=== PATIENT | male | born 1965 | race Caucasian/White ===

== ENCOUNTER 2016-04-05 17:21 | Emergency (ER) | payer OTHER, BC ==
[~2016-04-05] VITALS: Ht 180.3 cm; Wt 94.8 kg
[2016-04-05 18:11] VITALS: BP_SYST 156; BP_SYST 16; BP_DIAS 88; PULSE 66; RESP 16; TEMP 98; O2SAT 98
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
[2016-04-05] MEDS ORDERED: IBUP800T23 PO (19:56)
[2016-04-05] MEDS ORDERED: CYCL1TAB29 PO (19:56)
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
== END 2016-04-05 20:06 | disposition home or self-care (01) ==
LOC: PHEFT 17:21
DX: R07.89 Other chest pain (principal); V49.59XA Passenger injured in collision with other motor vehicles in traffic accident, initial encounter
CPT/HCPCS: 71020; 99284

== ENCOUNTER 2016-12-25 09:00 | Inpatient (IN) | payer BC ==
[2016-12-25] VITALS (8 sets, daily range): BP systolic 120–141; BP diastolic 61–98; PULSE 99–113; RESP 16–20; TEMP 97.4–99.5; O2SAT 95–100
[~2016-12-25] VITALS: Ht 180.3 cm; Wt 93.2 kg
[~2016-12-25 09:00] MED LIST: CYCL10TA PO; IBUP1TAB7 PO
[2016-12-25] MEDS ORDERED: SODIUM CHLOR 0.9% 1000 ML INJ 1,000 ML IV SCH ×2 (09:22)
[2016-12-25] MEDS ORDERED: ONDANSETRON HCL 4 MG/2 ML VIAL IVP ONE (09:30)
[2016-12-25] MEDS ORDERED: HYDROmorphone HCL PF 2 MG/ML VIAL IVS ONE (09:30)
[2016-12-25] MEDS ORDERED: SODIUM CHLORIDE 0.9% FLUSH 10 ML FLUSH IV FLUSH PRN ×2 (09:30→11:30)
--- NOTE | 2016-12-25 09:31 | PD ---
HPI Chief Complaint: Abdominal Pain Time Seen by Provider: 09:15 Travel History International Travel<30 days: No Contact w/Intl Traveler<30days: No Traveled to known affect area: No History of Present Illness HPI This 51-year-old male complaining of abdominal pain and vomiting. He has no history of abdominal surgery. Last night he was complaining of some lower back pain. The pain seemed to move to the front around 2:00 this morning he had a small bowel movement and then had a large amount of vomiting. He believes he was having upper abdominal pain prior to the onset of the vomiting. He again vomited at 4 and has continued to have abdominal pain. He had eaten dinner last night without any problems. He does feel like his abdomen is distended. He has no history of hernia. He had a small bowel movement this morning around 2 this loose stool. He says the pain was initially intermittent becoming every 60 seconds or so. It is now fairly constant and is quite severe. He recently had a routine colonoscopy which was normal. [facility] Past Medical History Medical History: Denies Significant Hx Diminished Hearing: No Immunizations Current: Yes Influenza Vaccination: Yes Past Surgical History Surgical History: No Previous Surgery Social History Alcohol Use: No Tobacco Use: No Substance Use: No Allergies-Medications (Allergen,Severity, Reaction): Coded Allergies: No Known Allergies (Unverified Adverse Reaction, Unknown, 12/25/16) Reported Meds & Prescriptions Reported Meds & Active Scripts Active No Active Prescriptions or Reported Medications Review of Systems General / Constitutional: No: Fever, Chills Eyes: No: Diploplia, Blurred Vision HENT: No: Headaches, Vertigo Cardiovascular: No: Chest Pain or Discomfort, Palpitations Respiratory: No: Cough, Shortness of Breath Gastrointestinal: Positive: Nausea, Vomiting, Abdominal Pain Genitourinary: No: Urgency, Frequency Physical Exam Narrative GENERAL: Well-developed male. He did vomit a large amount on arrival SKIN: Focused skin assessment warm/dry. HEAD: Atraumatic. Normocephalic. EYES: Pupils equal and round. No scleral icterus. No injection or drainage. ENT: No nasal bleeding or discharge. Mucous membranes pink and moist. NECK: Trachea midline. No JVD. CARDIOVASCULAR: Regular rate and rhythm. No murmur appreciated. RESPIRATORY: No accessory muscle use. Clear to auscultation. Breath sounds equal bilaterally. GASTROINTESTINAL: Abdomen is distended. There is upper abdominal tenderness. Bowel sounds are diminished MUSCULOSKELETAL: No obvious deformities. No clubbing. No cyanosis. No edema. NEUROLOGICAL: Awake and alert. No obvious cranial nerve deficits. Motor grossly within normal limits. Normal speech. PSYCHIATRIC: Appropriate mood and affect; insight and judgment normal. Data Data Last Documented VS Vital Signs Date Time Temp Pulse Resp B/P (MAP) Pulse Ox O2 Delivery O2 Flow Rate FiO2 12/25/16 09:41 95 Room Air 12/25/16 09:04 97.4 113 20 141/98 (112) Orders Orders Complete Blood Count With Diff (12/25/16:22) Comprehensive Metabolic Panel (12/25/16:) Lipase (12/25/16:) Urinalysis - C+S If Indicated (12/25/16:22) Ct Abd/Pel W Iv Contrast(Rout) (12/25/16:22) Iv Access Insert/Monitor (12/25/16:) Ecg Monitoring (12/25/16:) Oximetry (12/25/16:22) Hydromorphone Pf Inj (Dilaudid Pf Inj) (12/25/16 09:30) Ondansetron Inj (Zofran Inj) (12/25/16 09:30) Sodium Chlor 0.9% 1000 Ml Inj (Ns 1000 M (12/25/16 09:22) Sodium Chlor 0.9% 1000 Ml Inj (Ns 1000 M (12/25/16 09:22) Sodium Chloride 0.9% Flush (Ns Flush) (12/25/16 09:30) Labs Laboratory Tests Test 12/25/16 09:39 White Blood Count 19.1 TH/MM3 Red Blood Count 6.97 MIL/MM3 Hemoglobin 13.4 GM/DL Hematocrit 44.3 % Mean Corpuscular Volume 63.6 FL Mean Corpuscular Hemoglobin 19.3 PG Mean Corpuscular Hemoglobin Concent 30.3 % Red Cell Distribution Width 19.1 % Platelet Count 337 TH/MM3 Mean Platelet Volume 8.6 FL Neutrophils (%) (Auto) 93.3 % Lymphocytes (%) (Auto) 2.2 % Monocytes (%) (Auto) 3.0 % Eosinophils (%) (Auto) 0.3 % Basophils (%) (Auto) 1.2 % Neutrophils # (Auto) 17.8 TH/MM3 Lymphocytes # (Auto) 0.4 TH/MM3 Monocytes # (Auto) 0.6 TH/MM3 Eosinophils # (Auto) 0.1 TH/MM3 Basophils # (Auto) 0.2 TH/MM3 CBC Comment AUTO DIFF Blood Urea Nitrogen 23 MG/DL Creatinine 1.30 MG/DL Random Glucose 202 MG/DL Total Protein 8.5 GM/DL Albumin 4.3 GM/DL Calcium Level 9.2 MG/DL Alkaline Phosphatase 84 U/L Aspartate Amino Transf (AST/SGOT) 19 U/L Alanine Aminotransferase (ALT/SGPT) 33 U/L Total Bilirubin 0.6 MG/DL Sodium Level 135 MEQ/L Potassium Level 3.6 MEQ/L Chloride Level 96 MEQ/L Carbon Dioxide Level 24.0 MEQ/L Anion Gap 15 MEQ/L Estimat Glomerular Filtration Rate 58 ML/MIN Lipase 99 U/L [facility] Medical Decision Making Medical Screen Exam Complete: Yes Emergency Medical Condition: Yes Medical Record Reviewed: Yes Differential Diagnosis Differential includes acute gastritis, pancreatitis, small bowel obstruction Narrative Course Patient is given IV fluids, Zofran and Dilaudid. He does report improvement in his pain with Dilaudid. White count is elevated at 19,000 Scripts No Active Prescriptions or Reported Meds Bay Yu MD Dec 25, 2016 09:31
[2016-12-25 09:44] LABS: AUTOMATED NEUTROPHIL # 17.8 TH/MM3 (1.8-7.7); BASOPHIL # 0.2 TH/MM3 (0-0.2); BASOPHIL % 1.2 % (0.0-2.0); EOSINOPHIL # 0.1 TH/MM3 (0-0.4); EOSINOPHIL % 0.3 % (0.0-4.0); HEMATOCRIT 44.3 % (39.0-51.0); LYMPH % 2.2 % (9.0-44.0); LYMPHOCYTE # 0.4 TH/MM3 (1.0-4.8); MEAN CELL VOLUME 63.6 FL (80.0-100.0); MEAN CORPUSCULAR HEMOGLOBIN 19.3 PG (27.0-34.0); MEAN CORPUSCULAR HGB CONC 30.3 % (32.0-36.0); NEUT % 93.3 % (16.0-70.0); PLATELET COUNT 337 TH/MM3 (150-450); RED BLOOD COUNT 6.97 MIL/MM3 (4.50-5.90); RED CELL DISTRIBUTION WIDTH 19.1 % (11.6-17.2); WHITE BLOOD COUNT 19.1 TH/MM3 (4.0-11.0)
[2016-12-25 09:49] LABS: HEMO FLAGS AUTO DIFF
[2016-12-25 09:55] LABS: CHLORIDE 96 MEQ/L (98-107); POTASSIUM 3.6 MEQ/L (3.5-5.1); SODIUM (NA) 135 MEQ/L (136-145)
[2016-12-25 09:56] LABS: ANION GAP 15 MEQ/L (5-15)
[2016-12-25 09:59] LABS: ALT (GPT) 33 U/L (12-78); AST (GOT) 19 U/L (15-37); GLOMERULAR FILTRATION RATE 58 ML/MIN (>89)
[2016-12-25 10:00] LABS: BLOOD UREA NITROGEN 23 MG/DL (7-18)
[2016-12-25 10:01] LABS: TOTAL BILIRUBIN ADULT 0.6 MG/DL (0.2-1.0)
[2016-12-25 10:02] LABS: ALKALINE PHOSPHATASE 84 U/L (45-117)
[2016-12-25 10:08] LABS: SCAN/DIFF AUTO DIFF CONFIRMED
[2016-12-25] MEDS ORDERED: IOHEXOL 350 MG/ML 10 ML VIAL (for RAD DIAG) IVCONTRAST ONE (10:31)
--- NOTE | 2016-12-25 10:50 | RADRPT ---
EXAM DATE/TIME: 12/25/2016 10:24 [facility] COMPARISON: No previous studies available for comparison. INDICATIONS : Diffuse abdominal pain and cramping with vomiting and nausea. IV CONTRAST: 95 cc Omnipaque 350 (iohexol) IV ORAL CONTRAST: No oral contrast ingested. RADIATION DOSE: 15.72 CTDIvol (mGy) MEDICAL HISTORY : None SURGICAL HISTORY : None. ENCOUNTER: Initial ACUITY: 1 day PAIN SCALE: 5/10 LOCATION: abdomen TECHNIQUE: Volumetric scanning of the abdomen and pelvis was performed. Using automated exposure control and ad justment of the mA and/or kV according to patient size, radiation dose was kept as low as reasonably achievable to obtain optimal diagnostic quality images. DICOM format image data is available electro nically for review and comparison. FINDINGS: LOWER LUNGS: There is mild dependent atelectasis in the right lower lobe. Otherwise, lung bases are clear. LIVER: Homogeneous density without lesion. There is no dilation of the biliary tree. No calcified gallston es. SPLEEN: Mildly enlarged measuring 13.9 cm. PANCREAS: Within normal limits. KIDNEYS: There is a duplicated right renal collecting system. A 2 mm nonobstructing stone is present in the ri ght upper pole. There is no mass or hydronephrosis. ADRENAL GLANDS: Within normal limits. VASCULAR: There is no aortic aneurysm. There is mild atherosclerotic disease. BOWEL/MESENTERY: The distal esophagus is distended with fluid. A small hiatal hernia is present. There is a distended stomach. Duodenum and proximal jejunum are decompressed. Mid and distal jejunum are dilated measuring up to 3.5 cm. The transition point is in the distal and terminal ileum where there is mild wall thic kening and luminal narrowing involving a 10-15 cm segment. This abnormal portion of distal ileum demo nstrates mild mucosal hyperenhancement and submucosal fat. Immediately proximal to the abnormal segme nt there is a mildly distended and skip segment with an intervening short narrowed segment. Small bow el feces sign is present. There is a small volume of free fluid in the abdomen and pelvis. Colon is d ecompressed. ABDOMINAL WALL: Within normal limits. RETROPERITONEUM: There is no lymphadenopathy. BLADDER: No wall thickening or mass. REPRODUCTIVE: Within normal limits. INGUINAL: There is no lymphadenopathy or hernia. MUSCULOSKELETAL: No acute abnormality. CONCLUSION: 1. Abnormally dilated mid and distal small bowel likely representing a partial small bowel obstructio n secondary to an abnormal distal and terminal ileum. The abnormal ileum has an appearance highly satish picious for inflammatory bowel disease/Crohn's disease. 2. Trace free fluid in the abdomen and pelvis. 3. Mild splenomegaly. Augustin Murray MD on December 25, 2016 at 10:40 Board Certified Radiologist. This report was verified electronically.
[2016-12-25] MEDS ORDERED: PIPERACIL-TAZO 4.5 GM PREMIX 100 ML IV STA (11:01)
[2016-12-25] MEDS ORDERED: SODIUM CHLOR 0.9% 1000 ML INJ 1,000 ML IV ONE ×2 (11:15→12:15)
[2016-12-25] MEDS ORDERED: MAGNESIUM HYDROXIDE SUSP 30 ML CUP PO PRN (11:30)
[2016-12-25] MEDS ORDERED: LACTULOSE SYRUP 20 GM/30 ML CUP PO PRN (11:30)
[2016-12-25] MEDS ORDERED: NALOXONE HCL 0.4 MG/ML AMP IV PUSH PRN (11:30)
[2016-12-25] MEDS ORDERED: ACETAMINOPHEN 325 MG TAB PO PRN (11:30)
[2016-12-25] MEDS ORDERED: SENNOSIDES 8.6 MG TAB PO PRN (11:30)
[2016-12-25] MEDS ORDERED: MORPHINE SULFATE 4 MG/ML INJ IV PUSH PRN (11:30)
[2016-12-25] MEDS ORDERED: BISACODYL 10 MG SUPP RECTAL PRN (11:30)
[2016-12-25 11:46] LABS: BLOOD, URINE NEG (NEG); GLUCOSE,URINE NEG (NEG); KETONE, URINE 15 mg/dL (NEG); NITRITE,URINE NEG (NEG); PH, URINE 6.5 (5.0-8.5)
[2016-12-25 11:48] LABS: METHOD OF COLLECTION CLEAN CATCH; URINE COLOR YELLOW (YELLW/STRAW)
[2016-12-25 11:54] LABS: COMMENT (UR) CULT NOT INDICATED; COMMENT2 (UR) MUCOUS PRESENT; CULTURE IF INDICATED CULT NOT INDICATED; SQUAMOUS EPITHELIAL CELL URINE 0-5 /hpf (0-5); WBC, URINE 0-2 /hpf (0-5)
[2016-12-25 11:55] LABS: HYALINE CAST, URINE 0-2 /lpf (RARE); TRANSITIONAL EPI CELLS, URINE 0-5 /hpf
[2016-12-25] MEDS ORDERED: methylPREDNISolone SOD SUCC 125 MG/2 ML VIAL IV PUSH ONE (12:00)
[2016-12-25] MEDS: metroNIDAZOLE 500 MG INJ 100 ML IV SCH ×2 (12:25→20:29)
[2016-12-25] MEDS: SODIUM CHLOR 0.9% 1000 ML INJ 1,000 ML IV SCH ×2 (12:26→20:07)
--- NOTE | 2016-12-25 12:58 | PD ---
Physical Exam Narrative GENERAL: Well-nourished, well-developed patient. SKIN: Warm and dry. HEAD: Normocephalic and atraumatic. EYES: No injection or drainage. ENT: No nasal drainage noted. NECK: Supple, trachea midline. CARDIOVASCULAR: Regular rate and rhythm RESPIRATORY: no increased effort. No accessory muscle use. GASTROINTESTINAL: Abdomen soft, non-tender, mild distension NEUROLOGICAL: Awake and alert. Motor and sensory grossly within normal limits. Normal speech. Data Data Last Documented VS Vital Signs Date Time Temp Pulse Resp B/P (MAP) Pulse Ox O2 Delivery O2 Flow Rate FiO2 12/25/16 11:15 108 18 120/61 (80) 95 Room Air 12/25/16 09:04 97.4 Orders Orders Complete Blood Count With Diff (12/25/16 09:22) Comprehensive Metabolic Panel (12/25/16 09:22) Lipase (12/25/16 09:22) Urinalysis - C+S If Indicated (12/25/16 09:22) Ct Abd/Pel W Iv Contrast(Rout) (12/25/16 09:22) Iv Access Insert/Monitor (12/25/16 09:22) Ecg Monitoring (12/25/16 09:22) Oximetry (12/25/16 09:22) Hydromorphone Pf Inj (Dilaudid Pf Inj) (12/25/16 09:30) Ondansetron Inj (Zofran Inj) (12/25/16 09:30) Sodium Chlor 0.9% 1000 Ml Inj (Ns 1000 M (12/25/16 09:22) Sodium Chlor 0.9% 1000 Ml Inj (Ns 1000 M (12/25/16 09:22) Sodium Chloride 0.9% Flush (Ns Flush) (12/25/16 09:30) Iohexol 350 Inj (Omnipaque 350 Inj) (12/25/16 10:31) Lactic Acid Sepsis Protocol (12/25/16 11:01) Blood Culture (12/25/16 11:01) Piperacil-Tazo 4.5 Gm Premix (Zosyn 4.5 (12/25/16 11:01) Sodium Chlor 0.9% 1000 Ml Inj (Ns 1000 M (12/25/16 11:15) Consult General Surgery (12/25/16 ) Admit Order (Ed Use Only) (12/25/16 11:19) Labs Laboratory Tests Test 12/25/16 09:39 White Blood Count 19.1 TH/MM3 Red Blood Count 6.97 MIL/MM3 Hemoglobin 13.4 GM/DL Hematocrit 44.3 % Mean Corpuscular Volume 63.6 FL Mean Corpuscular Hemoglobin 19.3 PG Mean Corpuscular Hemoglobin Concent 30.3 % Red Cell Distribution Width 19.1 % Platelet Count 337 TH/MM3 Mean Platelet Volume 8.6 FL Neutrophils (%) (Auto) 93.3 % Lymphocytes (%) (Auto) 2.2 % Monocytes (%) (Auto) 3.0 % Eosinophils (%) (Auto) 0.3 % Basophils (%) (Auto) 1.2 % Neutrophils # (Auto) 17.8 TH/MM3 Lymphocytes # (Auto) 0.4 TH/MM3 Monocytes # (Auto) 0.6 TH/MM3 Eosinophils # (Auto) 0.1 TH/MM3 Basophils # (Auto) 0.2 TH/MM3 CBC Comment AUTO DIFF Differential Comment AUTO DIFF CONFIRMED Blood Urea Nitrogen 23 MG/DL Creatinine 1.30 MG/DL Random Glucose 202 MG/DL Total Protein 8.5 GM/DL Albumin 4.3 GM/DL Calcium Level 9.2 MG/DL Alkaline Phosphatase 84 U/L Aspartate Amino Transf (AST/SGOT) 19 U/L Alanine Aminotransferase (ALT/SGPT) 33 U/L Total Bilirubin 0.6 MG/DL Sodium Level 135 MEQ/L Potassium Level 3.6 MEQ/L Chloride Level 96 MEQ/L Carbon Dioxide Level 24.0 MEQ/L Anion Gap 15 MEQ/L Estimat Glomerular Filtration Rate 58 ML/MIN Lipase 99 U/L [facility] Supervised Visit with KHUSHBOO: No Interpretation(s) CBC & BMP Diagram 12/25/16 09:39 Total Protein 8.5 H, Albumin 4.3, Calcium Level 9.2, Alkaline Phosphatase 84, Aspartate Amino Transf (AST/SGOT) 19, Alanine Aminotransferase (ALT/SGPT) 33, Total Bilirubin 0.6 Last 24 hours Impressions Abdomen/Pelvis CT 12/25/16921 Signed Impressions: Service Date/Time: Sunday, December 25, 2016 10:24 - CONCLUSION: 1. Abnormally dilated mid and distal small bowel likely representing a partial small bowel obstruction secondary to an abnormal distal and terminal ileum. The abnormal ileum has an appearance highly suspicious for inflammatory bowel disease/Crohn's disease. 2. Trace free fluid in the abdomen and pelvis. 3. Mild splenomegaly. Augustin Murray MD Narrative Course Took over case as prior physician had a family emergency, given leukocytosis and tachycardia with findings on CT will add on lactate and dose with Zosyn and give IV fluids. We'll discuss case with general surgeon. Patient has no abdominal pain and has had no further emesis after medication here. He was updated and agrees to admission Sepsis Criteria SIRS Criteria (2 or more): Heart rate over 90, WBC > 08350, < 4000 or > 10% bands Sepsis Criteria (SIRS+source): Infect source susp/known Physician Communication Physician Communication dr avelar thru OR team states to admit to medicine and will be consult dr cage agrees to admit Diagnosis Primary Impression: Partial small bowel obstruction Additional Impression: Sepsis Qualified Codes: A41.9 - Sepsis, unspecified organism Admitting Information Admitting Physician Requests: Admit Scripts No Active Prescriptions or Reported Meds Chary Stokes MD Dec 25, 2016 12:58
[2016-12-25 13:41] LABS: LACTIC ACID GHOST NOT REPORTABLE
[2016-12-25] MEDS: CIPROFLOXACIN 200 MG PREMIX 100 ML IV SCH (14:21)
--- NOTE | 2016-12-25 14:50 | PD.CONS ---
cc: Francisco Brenner MD [facility] Service General Surgery Consult Requested By Dr. Stokes Reason for Consult [facility]BO Primary Care Physician Non-Staff History of Present Illness This is a 51 year old male with no past medical history who started developing lower back pain that radiated to his bilateral flank area yesterday. The patient thought he may be due to back spasms and went about his day as usual. For dinner last night the patient ate turkey tacos with his family. He awoke in the middle of the night with severe abdominal pain that he describes as sharp pain and rates it a 10/10 with associated nausea and vomiting. The patient had two episodes of emesis overnight. He was weak this morning and his family brought him to the ED. He had an elevated WBC and lactic acid level. A CT abdomen/pelvis was obtained which has an abnormal terminal ileum appearance that is highly suspicious for inflammatory bowel disease/Chron's disease. In the ED, the patient was given IV pain medications and IV Zofran and now had almost complete resolution of nausea/vomiting and abdominal pain. Oh note, he had a normal colonoscopy in May by Dr. Byers. A General Surgery consultation has been requested. Review of Systems Constitutional: COMPLAINS OF: Fatigue, DENIES: Chills, Change in appetite Endocrine: DENIES: Polydipsia, Polyuria, Polyphagia Eyes: DENIES: Diplopia Ears, nose, mouth, throat: DENIES: Tinnitus, Hearing loss Respiratory: DENIES: Cough Cardiovascular: DENIES: Chest pain Gastrointestinal: COMPLAINS OF: Abdominal pain, Nausea, Vomiting, DENIES: Constipation, Diarrhea Genitourinary: DENIES: Urgency Musculoskeletal: DENIES: Joint pain Integumentary: DENIES: Abnormal pigmentation Hematologic/lymphatic: DENIES: Bruising Immunologic/allergic: DENIES: Eczema Neurologic: DENIES: Headache, Localized weakness Psychiatric: DENIES: Confusion, Mood changes, Depression Past Family Social History Past Medical History None Past Surgical History [place] teeth extraction x 2 Reported Medications None Allergies: Coded Allergies: No Known Allergies (Unverified Allergy, Unknown, 12/25/16) Active Ordered Medications Current Medications Medications (Trade) Dose Ordered Sig/Luan Route Start Time Stop Time Status Last Admin Ciprofloxacin/ Dextrose 100 ml @ 100 mls/hr Q12H IV 12/25/16 13:00 12/25/16 14:21 Metronidazole 100 ml @ 100 mls/hr Q8H IV 12/25/16 12:00 12/25/16 12:25 Sodium Chloride 1,000 ml @ 100 mls/hr Q10H IV 12/25/16 11:25 12/25/16 12:26 (NS Flush) 2 ml UNSCH PRN IV FLUSH 12/25/16 11:30 (NS Flush) 2 ml BID IV FLUSH 12/25/16 21:00 (Tylenol) 650 mg Q4H PRN PO 12/25/16 11:30 (Zofran Inj) 4 mg Q6H PRN IVP 12/25/16 11:30 (Morphine Inj) 2 mg Q3H PRN IV PUSH 12/25/16 11:30 (Narcan Inj) 0.4 mg UNSCH PRN IV PUSH 12/25/16 11:30 (Eusebia-Colace) 1 tab BID PO 12/25/16 21:00 (Milk Of Magnesia Liq) 30 ml Q12H PRN PO 12/25/16 11:30 (Senokot) 17.2 mg Q12H PRN PO 12/25/16 11:30 (Dulcolax Supp) 10 mg DAILY PRN RECTAL 12/25/16 11:30 (Lactulose Liq) 30 ml DAILY PRN PO 12/25/16 11:30 Family History Paternal grandfather with cancer ---patient knows no more details than that Social History Denies tobacco use Denies ETOH use Denies illicit drug use 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 Physical Exam Vital Signs Vital Signs Date Time Temp Pulse Resp B/P (MAP) Pulse Ox O2 Delivery O2 Flow Rate FiO2 12/25/16 13:15 99.5 105 20 132/73 (92) 98 12/25/16 13:10 112 18 136/73 (94) 95 12/25/16 12:15 109 18 131/79 (96) 95 Room Air 12/25/16 11:15 108 18 120/61 (80) 95 Room Air 12/25/16 09:41 95 Room Air 12/25/16 09:04 97.4 113 20 141/98 (310) 100 Physical Exam GENERAL: 51 year old male resting comfortably in bed in no acute distress. SKIN: Warm and dry. HEAD: Atraumatic. Normocephalic. EYES: Pupils equal and round. No scleral icterus. No injection or drainage. ENT: No nasal bleeding or discharge. Mucous membranes pink and moist. NECK: Trachea midline. CARDIOVASCULAR: Regular rate and rhythm. RESPIRATORY: No accessory muscle use. Clear to auscultation. Breath sounds equal bilaterally. GASTROINTESTINAL: Abdomen soft, non-tender, mildly distended. No visible scars. No hernias. MUSCULOSKELETAL: Extremities without clubbing, cyanosis, or edema. No obvious deformities. NEUROLOGICAL: Awake and alert. No obvious cranial nerve deficits. Motor grossly within normal limits. Five out of 5 muscle strength in the arms and legs. Normal speech. PSYCHIATRIC: Appropriate mood and affect; insight and judgment normal. Laboratory Laboratory Tests Test 12/25/16 09:39 12/25/16 11:30 12/25/16 11:35 12/25/16 14:22 White Blood Count 19.1 Red Blood Count 6.97 Hemoglobin 13.4 Hematocrit 44.3 Mean Corpuscular Volume 63.6 Mean Corpuscular Hemoglobin 19.3 Mean Corpuscular Hemoglobin Concent 30.3 Red Cell Distribution Width 19.1 Platelet Count 337 Mean Platelet Volume 8.6 Neutrophils (%) (Auto) 93.3 Lymphocytes (%) (Auto) 2.2 Monocytes (%) (Auto) 3.0 Eosinophils (%) (Auto) 0.3 Basophils (%) (Auto) 1.2 Neutrophils # (Auto) 17.8 Lymphocytes # (Auto) 0.4 Monocytes # (Auto) 0.6 Eosinophils # (Auto) 0.1 Basophils # (Auto) 0.2 CBC Comment AUTO DIFF Differential Comment AUTO DIFF CONFIRMED Blood Urea Nitrogen 23 Creatinine 1.30 Random Glucose 202 Total Protein 8.5 Albumin 4.3 Calcium Level 9.2 Alkaline Phosphatase 84 Aspartate Amino Transf (AST/SGOT) 19 Alanine Aminotransferase (ALT/SGPT) 33 Total Bilirubin 0.6 Sodium Level 135 Potassium Level 3.6 Chloride Level 96 Carbon Dioxide Level 24.0 Anion Gap 15 Estimat Glomerular Filtration Rate 58 Lipase 99 Urine Collection Type CLEAN CATCH Urine Color YELLOW Urine Turbidity CLEAR Urine pH 6.5 Urine Specific [place] GREATER THAN 1.035 Urine Protein 30 Urine Glucose (UA) NEG Urine Ketones 15 Urine Occult Blood NEG Urine Nitrite NEG Urine Bilirubin NEG Urine Leukocyte Esterase NEG Urine WBC 0-2 Urine Squamous Epithelial Cells 0-5 Urine Transitional Epithelial Cells 0-5 Urine Amorphous Sediment FEW Urine Hyaline Casts 0-2 Microscopic Urinalysis Comment CULT NOT INDICATED Urine Collection Time 1130 Lactic Acid Level 4.9 Date/Time Source Procedure Growth Status 12/25/16 11:35 Blood Peripheral Aerobic Blood Culture Pending Received 12/25/16 11:35 Blood Peripheral Anaerobic Blood Culture Pending Received Result Diagram: 12/25/1639 12/25/16938 Imaging Last 48 hours Impressions Abdomen/Pelvis CT 12/25/16921 Signed Impressions: Service Date/Time: Sunday, December 25, 2016 10:24 - CONCLUSION: 1. Abnormally dilated mid and distal small bowel likely representing a partial small bowel obstruction secondary to an abnormal distal and terminal ileum. The abnormal ileum has an appearance highly suspicious for inflammatory bowel disease/Crohn's disease. 2. Trace free fluid in the abdomen and pelvis. 3. Mild splenomegaly. Augustin Murray MD Assessment and Plan Assessment and Plan 51 year old male with abdominal pain/nausea/vomiting; CT abd/pelvis suspicious for Crohn's Disease -NPO; okay for a few ice chips -Continue IVF -Continue IV antibiotics -Zofran PRN -Pain medications PRN -Continue to monitor WBC -GI also consulted; await recommendations -Thank you for this consult; We will continue to follow Attending Note - Dr. Brenner Patient seen and examined; abdomen is benign and soft. Patient states it is less distended than yesterday and is more normal size today. Infectious vs. inflammatory bowel disease; will follow with you. The exam, history, and the medical decision-making described in the above note were completed with the assistance of the mid-level provider. I reviewed and agree with the findings presented. I attest that I had a [id number] encounter with the patient on the same day, and personally performed and documented my assessment and findings in the medical record. Discussed Condition With Umu Vargas. ANTIQUE REPAIRER Dec 25, 2016 14:50 Francisco Brenner MD Dec 25, 2016 21:14
[2016-12-25] MEDS: ONDANSETRON HCL 4 MG/2 ML VIAL IVP PRN (18:30)
[2016-12-25] MEDS: DOCUSATE SODIUM 50 MG/SENNA 8.6 MG TAB PO SCH (20:12)
[2016-12-25] MEDS: SODIUM CHLORIDE 0.9% FLUSH 10 ML FLUSH IV FLUSH SCH (20:29)
--- NOTE | 2016-12-25 20:59 | MB ---
cc: ASMITA VICTORIA MD DATE OF CONSULTATION 12/25/16 [address] Mcintyre REASON FOR REFERRAL Abdominal pain HISTORY OF PRESENT ILLNESS Thank you for the consultation. A pleasant 51-year-old gentleman who has been in general health until a few days ago. The patient started having complaint of some lower back pain. The pain starts moving around to the front where he started having significant distension of his abdomen with nausea and vomiting and then he started having pain. With that, he decided to come to the hospital. In the hospital, his belly was distended. He had a CT scan which showed possible small bowel obstruction with abnormal CT scan and leukocytosis. Gradually, the patient started having bowel movements and loose stool after doing a CT scan and then today he feels that his symptom improved with his abdomen less distended and more bowel movements. He had colonoscopy a few months ago that was normal according to him. PAST MEDICAL HISTORY Noncontributory SOCIAL HISTORY Negative for tobacco, drug or alcohol. PAST SURGICAL HISTORY No previous surgery. ALLERGIES NO KNOWN DRUG ALLERGIES. FAMILY HISTORY Noncontributory REVIEW OF SYSTEMS All 12-point negative except HPI. PHYSICAL EXAMINATION General: Currently, the patient is alert, oriented, laying in bed comfortably in no acute distress. VITAL SIGNS: Stable. HEENT: Pupils are round, reactive to light. NECK: Supple. CHEST: Clear to auscultation and percussion. CARDIAC: Regular rate and rhythm. No murmur or gallop. ABDOMEN: Soft, nondistended. Minimal discomfort. Positive bowel sounds. EXTREMITIES: No edema, clubbing or cyanosis. NEUROLOGIC: Neurologically intact. Alert, oriented in no acute distress and no focal abnormality. PSYCHIATRIC: Logically appropriate. LABORATORY DATA White count 19.1, hemoglobin 13.4, platelet 337. Liver function tests are normal. Lactic acid was 4.9 this morning. Later it was 3.0. Lipase 99. Urine test showed dehydration. IMAGING STUDIES CT of the abdomen showed abnormal dilated mid and distal small bowel likely representing a partial small obstruction and there was an abnormal distal and terminal ileum suspicious for inflammatory bowel disease, Crohn's disease. Some fluid in the pelvis. ASSESSMENT/PLAN A 51-year-old gentleman with abdominal pain, distension, possible bowel obstruction with leukocytosis. His symptoms resolved overnight so since he never had any problem before and colonoscopy was normal even though I an not sure if terminal ileum was evaluated on that colonoscopy or not but it sounds like it could be infectious process. That does not eliminate the possibility of Crohn's disease, but since he is improving I would suggest continued supportive care. The patient is not interested in a colonoscopy. I would suggest that we repeat the CT scan if he is doing better in about a month or two to ensure that the findings that were there are resolved and we will see how he tolerates diet. If the patient gets worse, then he will need a colonoscopy with terminal ileum intubation for possible biopsy. We will follow up his white count to ensure that it is improving. MD LISBETH Sweeney/ /8:30 PM /8:50 PM
[2016-12-26] VITALS: BP 143/76; PULSE 95; RESP 18; TEMP 96.8; O2SAT 93
[2016-12-26] MEDS: CIPROFLOXACIN 200 MG PREMIX 100 ML IV SCH ×2 (02:59→14:22)
[2016-12-26] MEDS: metroNIDAZOLE 500 MG INJ 100 ML IV SCH ×3 (04:44→19:54)
[2016-12-26 06:53] LABS: BASOPHIL % 0.6 % (0.0-2.0); EOSINOPHIL # 0.1 TH/MM3 (0-0.4); EOSINOPHIL % 1.6 % (0.0-4.0); HEMATOCRIT 32.3 % (39.0-51.0); LYMPH % 10.2 % (9.0-44.0); LYMPHOCYTE # 0.6 TH/MM3 (1.0-4.8); MEAN CELL VOLUME 63.7 FL (80.0-100.0); MEAN CORPUSCULAR HEMOGLOBIN 19.3 PG (27.0-34.0); MEAN CORPUSCULAR HGB CONC 30.3 % (32.0-36.0); MONO % 15.5 % (0.0-8.0); NEUT % 72.1 % (16.0-70.0); PLATELET COUNT 200 TH/MM3 (150-450); RED BLOOD COUNT 5.07 MIL/MM3 (4.50-5.90); RED CELL DISTRIBUTION WIDTH 19.4 % (11.6-17.2); WHITE BLOOD COUNT 5.6 TH/MM3 (4.0-11.0)
[2016-12-26 06:54] LABS: HEMO FLAGS AUTO DIFF
--- NOTE | 2016-12-26 07:06 | HHI.GIFU ---
Subjective Remarks Patient was seen and examined, laying in bed comfortably, he passed some gas but no bowel movements, no abdominal pain or nausea or vomiting Objective Vitals I&O Vital Signs Date Time Temp Pulse Resp B/P (MAP) Pulse Ox O2 Delivery O2 Flow Rate FiO2 12/26/16 00:00 96.8 95 18 143/76 (98) 93 12/25/16 20:00 97.5 100 18 138/73 (94) 96 12/25/16 16:00 98.9 99 16 125/75 (92) 99 12/25/16 13:15 99.5 105 20 132/73 (92) 98 12/25/16 13:10 112 18 136/73 (94) 95 12/25/16 12:15 109 18 131/79 (96) 95 Room Air 12/25/16 11:15 108 18 120/61 (80) 95 Room Air 12/25/16 09:41 95 Room Air 12/25/16 09:04 97.4 113 20 141/98 (112) 100 I/O 12/25/16 12/25/16 12/25/16 12/26/16 12/26/16 12/26/16 07:00 15:00 23:00 07:00 15:00 23:00 Intake Total 1450 ml 1194 ml 1960 ml Output Total 600 ml 520 ml Balance 850 ml 1194 ml 1440 ml Intake Oral 0 ml 760 ml IV Total 1450 ml 1194 ml 1200 ml Output Urine Total 520 ml Emesis 600 ml # Voids 2 # Bowel Movements 0 2 Laboratory Laboratory Tests Test 12/25/16 09:39 12/25/16 11:30 12/25/16 11:35 12/25/16 14:22 White Blood Count 19.1 Red Blood Count 6.97 Hemoglobin 13.4 Hematocrit 44.3 Mean Corpuscular Volume 63.6 Mean Corpuscular Hemoglobin 19.3 Mean Corpuscular Hemoglobin Concent 30.3 Red Cell Distribution Width 19.1 Platelet Count 337 Mean Platelet Volume 8.6 Neutrophils (%) (Auto) 93.3 Lymphocytes (%) (Auto) 2.2 Monocytes (%) (Auto) 3.0 Eosinophils (%) (Auto) 0.3 Basophils (%) (Auto) 1.2 Neutrophils # (Auto) 17.8 Lymphocytes # (Auto) 0.4 Monocytes # (Auto) 0.6 Eosinophils # (Auto) 0.1 Basophils # (Auto) 0.2 CBC Comment AUTO DIFF Differential Comment AUTO DIFF CONFIRMED Blood Urea Nitrogen 23 Creatinine 1.30 Random Glucose 202 Total Protein 8.5 Albumin 4.3 Calcium Level 9.2 Alkaline Phosphatase 84 Aspartate Amino Transf (AST/SGOT) 19 Alanine Aminotransferase (ALT/SGPT) 33 Total Bilirubin 0.6 Sodium Level 135 Potassium Level 3.6 Chloride Level 96 Carbon Dioxide Level 24.0 Anion Gap 15 Estimat Glomerular Filtration Rate 58 Lipase 99 Urine Collection Type CLEAN CATCH Urine Color YELLOW Urine Turbidity CLEAR Urine pH 6.5 Urine Specific [place] GREATER THAN 1.035 Urine Protein 30 Urine Glucose (UA) NEG Urine Ketones 15 Urine Occult Blood NEG Urine Nitrite NEG Urine Bilirubin NEG Urine Leukocyte Esterase NEG Urine WBC 0-2 Urine Squamous Epithelial Cells 0-5 Urine Transitional Epithelial Cells 0-5 Urine Amorphous Sediment FEW Urine Hyaline Casts 0-2 Microscopic Urinalysis Comment CULT NOT INDICATED Urine Collection Time 1130 Lactic Acid Level 4.9 3.0 Test 12/26/16 06:35 White Blood Count 5.6 Red Blood Count 5.07 Hemoglobin 9.8 Hematocrit 32.3 Mean Corpuscular Volume 63.7 Mean Corpuscular Hemoglobin 19.3 Mean Corpuscular Hemoglobin Concent 30.3 Red Cell Distribution Width 19.4 Platelet Count 200 Mean Platelet Volume 8.6 Neutrophils (%) (Auto) 72.1 Lymphocytes (%) (Auto) 10.2 Monocytes (%) (Auto) 15.5 Eosinophils (%) (Auto) 1.6 Basophils (%) (Auto) 0.6 Neutrophils # (Auto) 4.0 Lymphocytes # (Auto) 0.6 Monocytes # (Auto) 0.9 Eosinophils # (Auto) 0.1 Basophils # (Auto) 0.0 CBC Comment AUTO DIFF Date/Time Source Procedure Growth Status 12/25/16 11:35 Blood Peripheral Aerobic Blood Culture Pending Received 12/25/16 11:35 Blood Peripheral Anaerobic Blood Culture Pending Received Physical Exam HEENT: Pupils round and reactive to light; normocephalic; atraumatic; no jaundice. Throat is clear. NECK: Neck is supple, no JVD, no lymphadenopathy. CHEST: Chest is clear to auscultation and percussion. CARDIAC: Regular rate and rhythm with no murmur gallop or rubs. ABDOMEN: Soft, nondistended, nontender; no hepatosplenomegaly; bowel sounds are present in all four quadrants. EXTREMITIES: No clubbing, cyanosis, or edema. SKIN: Normal; no rash; no jaundice. [employer] INSIGHTS: No focal deficits; alert and oriented times three. Assessment and Plan Plan Patient is 51-year-old gentleman who came with abdominal pain abnormal CT scan of the small bowel questionable enteritis versus Crohn disease patient did not have any nausea or vomiting no abdominal pain at this time I discussed the case with Dr. Brenner the plan will be to obtain small bowel follow-through today if it's showing no obstruction we can try to give him diet and advance it as tolerated Patient would like to avoid colonoscopy if possible If he is able to tolerate diet he can be discharged and we will do CT scan as an outpatient in 1 month to ensure that his findings resolved if not he will need to be on therapy for Crohn disease after attempting colonoscopy with possible biopsy Michael Glez MD Dec 26, 2016 07:06
[2016-12-26 07:12] LABS: BICARBONATE 25.1 MEQ/L (21.0-32.0); POTASSIUM 4.2 MEQ/L (3.5-5.1)
[2016-12-26] MEDS: SODIUM CHLOR 0.9% 1000 ML INJ 1,000 ML IV SCH ×3 (07:28→20:05)
[2016-12-26 07:39] LABS: KERATOCYTES OCC (NORMAL); OVALOCYTES 2+ (NORMAL); TEARDROP RBCS 1+ (NORMAL)
[2016-12-26 07:40] LABS: SCAN/DIFF AUTO DIFF CONFIRMED
[2016-12-26 07:50] VITALS: BP 125/61; PULSE 80; RESP 20; TEMP 97.6; O2SAT 93
[2016-12-26] MEDS ORDERED: DIATRIZOATE MEGLUM/DIATRIZOATE SOD 120 ML BTL (for RAD DIAG) PO ONE (09:00)
[2016-12-26] MEDS: ONDANSETRON HCL 4 MG/2 ML VIAL IVP PRN (09:26)
[2016-12-26] MEDS: SODIUM CHLORIDE 0.9% FLUSH 10 ML FLUSH IV FLUSH SCH ×2 (09:27→19:59)
[2016-12-26] MEDS: DOCUSATE SODIUM 50 MG/SENNA 8.6 MG TAB PO SCH ×2 (09:27→19:59)
--- NOTE | 2016-12-26 09:52 | RADRPT ---
EXAM DATE/TIME: 12/26/2016 08:00 [facility] COMPARISON: CT ABDOMEN & PELVIS W CONTRAST, December 25, 2016, 10:24. INDICATIONS : Obstruction, abdomen pain, vomiting. FLUORO TIME: 0 minutes IMAGE COUNT: 13 CONTRAST: MD [place] IMAGING TIME(S): 15 min, 30 min, 45 min, 1 hr MEDICAL HISTORY : None. SURGICAL HISTORY : None. ENCOUNTER: Subsequent ACUITY: 2 days PAIN SCORE: 1/10 LOCATION: Bilateral mid abdomen FINDINGS: Primary java architect film reveals dilatation of proximal small bowel when compared to distal syndrome was se en on the CT java architect film. Patient was in significant pain and study is limited. There is marked dilatation of proximal to mid small bowel with Gastrografin filling these loops. The stomach and very proximal jejunum is decompre ssed. These bowel loops measures 7 cm. Contrast does traverse into the colon through an abnormal ter chasidy ileum similar to what was seen on the CT scan of 12/25/16. CONCLUSION: Abnormal small bowel series with Gastrografin dilatation of proximal small bowel loops has progressed . Findings are most consistent with inflammatory bowel disease. This can be followed by MRI enterography Federico Mortensen MD FACR on December 26, 2016 at 9:47 Board Certified Radiologist. This report was verified electronically.
--- NOTE | 2016-12-26 11:46 | HHI.HP ---
[facility] Service [facility] Primary Care Physician Non-Staff Admission Diagnosis partial small bowel obstruction, leukocytosis Diagnoses: Travel History International Travel<30 Days: No Contact w/Intl Traveler <30 Da: No Traveled to Known Affected Are: No History of Present Illness this is a pleasant 51 year-old male with no significant past medical history who presented to the ER yesterday complaining of severe abdominal pain. The patient states that 2 days ago he started to develop some lower back cramping. Then yesterday he woke up in the middle of night around 2 AM with severe lower abdominal pain which progressed to the periumbilical area. It was sharp and cramping in nature first intermittent and then became steady 10 out of 10 no alleviating factors. Associated with 2 bouts of vomiting. He also had a fever and chills. His abdomen felt distended. Last bowel movement the day prior and was normal. Patient presented to the ER were lactic acid was elevated at 4 with repeat 3[address] Abdominal CT scan showing ileitis and a partial small bowel obstruction. Of note patient had a colonoscopy 4 months ago which was reportedly normal. No family history of inflammatory bowel disease. No sick contacts. Patient was given IV Cipro and Flagyl and one dose of Solu- Medrol. GI and general surgery were consulted. Patient has had 2 bowel movements this morning the first form the second one loose. Patient states this morning his abdominal pain had resolved however when he went down for small bowel follow-through and was given IV contrast he started to develop the pain again in the same region which is intermittent however this time only 3 out of 10. Review of Systems Constitutional: COMPLAINS OF: Fever, Chills, DENIES: Weight loss Eyes: DENIES: Blurred vision, Diplopia Ears, nose, mouth, throat: DENIES: Throat pain, Odynophagia Respiratory: DENIES: Cough, Shortness of breath Cardiovascular: DENIES: Chest pain, Palpitations Gastrointestinal: COMPLAINS OF: Abdominal pain, Nausea, Vomiting, DENIES: Black stools, Bloody stools, Diarrhea Genitourinary: DENIES: Urgency, Dysuria Musculoskeletal: DENIES: Muscle aches, Neck pain Integumentary: DENIES: Pruritus, Rash Hematologic/lymphatic: DENIES: Lymphadenopathy Neurologic: DENIES: Abnormal gait, Headache, Paresthesias Psychiatric: DENIES: Anxiety, Confusion Past Family Social History Past Medical History none Past Surgical History none Reported Medications Allergies Coded Allergies Type Severity Reaction Last Updated Verified No Known Allergies Allergy Unknown 12/25/16 No Active Scripts Medications Dose Route/Sig Max Daily Dose Days Date Category No Active Prescriptions or Reported Medications Rx Allergies: Coded Allergies: No Known Allergies (Unverified Allergy, Unknown, 12/25/16) Family History negative for inflammatory bowel disease Social History no e/t/d Physical Exam Vital Signs Vital Signs Date Time Temp Pulse Resp B/P (MAP) Pulse Ox O2 Delivery O2 Flow Rate FiO2 12/26/16 07:50 97.6 80 20 125/61 (82) 93 12/26/16 00:00 96.8 95 18 143/76 (98) 93 12/25/16 20:00 97.5 100 18 138/73 (94) 96 12/25/16 16:00 98.9 99 16 125/75 (92) 99 12/25/16 13:15 99.5 105 20 132/73 (92) 98 12/25/16 13:10 112 18 136/73 (94) 95 12/25/16 12:15 109 18 131/79 (96) 95 Room Air Physical Exam GENERAL: Well-nourished, well-developed pleasant male patient. SKIN: Warm and dry. HEAD: Normocephalic. EYES: No scleral icterus. No injection or drainage. NECK: Supple, trachea midline. No JVD or lymphadenopathy. CARDIOVASCULAR: Regular rate and rhythm without murmurs, gallops, or rubs. RESPIRATORY: Breath sounds equal bilaterally. No accessory muscle use. GASTROINTESTINAL: BS normal. Abdomen soft, non-tender to light and deep palpation throughout, nondistended. EXTREMITIES: No cyanosis, or edema. NEUROLOGICAL: Awake, alert, and oriented x 3. Non-focal. Laboratory Laboratory Tests Test 12/25/16 14:22 12/26/16 06:35 Lactic Acid Level 3.0 White Blood Count 5.6 Red Blood Count 5.07 Hemoglobin 9.8 Hematocrit 32.3 Mean Corpuscular Volume 63.7 Mean Corpuscular Hemoglobin 19.3 Mean Corpuscular Hemoglobin Concent 30.3 Red Cell Distribution Width 19.4 Platelet Count 200 Mean Platelet Volume 8.6 Neutrophils (%) (Auto) 72.1 Lymphocytes (%) (Auto) 10.2 Monocytes (%) (Auto) 15.5 Eosinophils (%) (Auto) 1.6 Basophils (%) (Auto) 0.6 Neutrophils # (Auto) 4.0 Lymphocytes # (Auto) 0.6 Monocytes # (Auto) 0.9 Eosinophils # (Auto) 0.1 Basophils # (Auto) 0.0 CBC Comment AUTO DIFF Differential Comment AUTO DIFF CONFIRMED Tear Drop Cells 1+ Ovalocytes 2+ Keratocytes OCC Blood Urea Nitrogen 25 Creatinine 0.92 Random Glucose 111 Calcium Level 7.8 Sodium Level 140 Potassium Level 4.2 Chloride Level 107 Carbon Dioxide Level 25.1 Anion Gap 8 Estimat Glomerular Filtration Rate 87 Date/Time Source Procedure Growth Status 12/25/16 11:35 Blood Peripheral Aerobic Blood Culture - Preliminary NO GROWTH IN 1 DAY Resulted 12/25/16 11:35 Blood Peripheral Anaerobic Blood Culture - Preliminary NO GROWTH IN 1 DAY Resulted Result Diagram: 12/26/16 0635 12/26/16 0635 Imaging Last Impressions Small Bowel X-Ray 12/26/16 0000 Signed Impressions: Service Date/Time: Monday, December 26, 2016 08:00 - CONCLUSION: Abnormal small bowel series with Gastrografin dilatation of proximal small bowel loops has progressed. Findings are most consistent with inflammatory bowel disease. This can be followed by MRI enterography Federico Mortensen MD FACR Abdomen/Pelvis CT 12/25/16 0922 Signed Impressions: Service Date/Time: Sunday, December 25, 2016 10:24 - CONCLUSION: 1. Abnormally dilated mid and distal small bowel likely representing a partial small bowel obstruction secondary to an abnormal distal and terminal ileum. The abnormal ileum has an appearance highly suspicious for inflammatory bowel disease/Crohn's disease. 2. Trace free fluid in the abdomen and pelvis. 3. Mild splenomegaly. MD Brandin Álvarezi VTE Risk Assessment Caprini VTE Risk Assessment: No/Low Risk (score <= 1) Caprini Risk Assessment Model Point Value = 1 Point Value = 2 Point Value = 3 Point Value = 5 Age 41-60 Minor surgery BMI > 25 kg/m2 Swollen legs Varicose veins or History of unexplained or recurrent spontaneous Oral contraceptives or hormone replacement Sepsis (< 1 month) Serious lung disease, including pneumonia (< 1 month) Abnormal pulmonary function Acute myocardial infarction Congestive heart failure (< 1 month) History of inflammatory bowel disease Medical patient at bed rest Age 61-74 Arthroscopic surgery Major open surgery (> 45 min) Laparoscopic surgery (> 45 min) Malignancy Confined to bed (> 72 hours) Immobilizing plaster cast Central venous access Age >= 75 History of VTE Family history of VTE Factor V Leiden Prothrombin [id number] Lupus anticoagulant Anticardiolipin antibodies Elevated serum homocysteine Heparin-induced thrombocytopenia Other congenital or acquired thrombophilia Stroke (< 1 month) Elective arthroplasty Hip, pelvis, or leg fracture Acute spinal cord injury (< 1 month) Prophylaxis Regimen Total Risk Factor Score Risk Level Prophylaxis Regimen 0-1 Low Early ambulation 2 Moderate Order ONE of the following: *Sequential Compression Device (SCD) *Heparin 5000 units SQ BID 3-4 Higher Order ONE of the following medications: *Heparin 5000 units SQ TID *Enoxaparin/Lovenox 40 mg SQ daily (WT < 150 kg, CrCl > 30 mL/min) *Enoxaparin/Lovenox 30 mg SQ daily (WT < 150 kg, CrCl > 10-29 mL/min) *Enoxaparin/Lovenox 30 mg SQ BID (WT < 150 kg, CrCl > 30 mL/min) AND/OR *Sequential Compression Device (SCD) 5 or more Highest Order ONE of the following medications: *Heparin 5000 units SQ TID (Preferred with Epidurals) *Enoxaparin/Lovenox 40 mg SQ daily (WT < 150 kg, CrCl > 30 mL/min) *Enoxaparin/Lovenox 30 mg SQ daily (WT < 150 kg, CrCl > 10-29 mL/min) *Enoxaparin/Lovenox 30 mg SQ BID (WT < 150 kg, CrCl > 30 mL/min) AND *Sequential Compression Device (SCD) Assessment and Plan Problem List: (1) Partial small bowel obstruction ICD Code: K56.600 - Partial intestinal obstruction, unspecified as to cause Status: Acute (2) Sepsis ICD Code: A41.9 - Sepsis, unspecified organism Status: Acute Assessment and Plan -Terminal ileilitis with partial small bowel obstruction, sepsis - the patient had a normal colonoscopy 4 months ago. Gastroenterology and general surgery following. Patient's symptoms are improving. Continue Cipro and Flagyl. Patient is for small bowel follow-through today. If that is negative he may eat. Patient will need a colonoscopy in the future to rule out inflammatory bowel disease. Continue pain control and IV fluids, Zofran as needed. Blood cultures are negative at 24 hours, will repeat lactic acid. Cytosis resolved, vital signs stable. -Anemia. Patient had a 4 point drop in hemoglobin overnight. Probable component of dilution. Unclear etiology of anemia. Will check iron studies. Repeat CBC in the morning. -DVT prophylaxis with SCDs. Problem Qualifiers (1) Sepsis: Qualified Codes: A41.9 - Sepsis, unspecified organism Genoveva Mcintyre MD Dec 26, 2016 11:46
[2016-12-26 11:50] VITALS: BP 161/87; PULSE 84; RESP 20; TEMP 98.5; O2SAT 98
[2016-12-26] MEDS ORDERED: MAGNESIUM CITRATE SOLN 300 ML BTL PO ONE ×2 (12:00→18:00)
[2016-12-26] MEDS ORDERED: MORPHINE SULFATE 4 MG/ML INJ IV PUSH PRN (12:15)
[2016-12-26 14:06] LABS: TRANSFERRIN IRON PROFILE 284 MG/DL (200-360)
[2016-12-26 14:31] LABS: FERRITIN 12 NG/ML (26-388)
[2016-12-26 15:50] VITALS: BP 123/60; PULSE 79; RESP 20; TEMP 97.7; O2SAT 97
[2016-12-26] MEDS: BISACODYL EC 5 MG TABEC PO SCH ×2 (17:21→19:59)
[2016-12-26 20:00] VITALS: BP 135/68; PULSE 83; RESP 17; TEMP 98; O2SAT 96
[2016-12-27] VITALS: BP 126/70; PULSE 77; RESP 18; TEMP 97.7; O2SAT 97
[2016-12-27] MEDS: CIPROFLOXACIN 200 MG PREMIX 100 ML IV SCH (01:55)
[2016-12-27] MEDS: metroNIDAZOLE 500 MG INJ 100 ML IV SCH (04:48)
[2016-12-27 06:43] LABS: AUTOMATED NEUTROPHIL # 3.3 TH/MM3 (1.8-7.7); BASOPHIL % 0.9 % (0.0-2.0); EOSINOPHIL # 0.3 TH/MM3 (0-0.4); HEMATOCRIT 28.4 % (39.0-51.0); LYMPH % 22.8 % (9.0-44.0); LYMPHOCYTE # 1.2 TH/MM3 (1.0-4.8); MEAN CELL VOLUME 64.4 FL (80.0-100.0); MEAN CORPUSCULAR HEMOGLOBIN 19.7 PG (27.0-34.0); MEAN CORPUSCULAR HGB CONC 30.6 % (32.0-36.0); MONO % 10.7 % (0.0-8.0); NEUT % 59.6 % (16.0-70.0); PLATELET COUNT 174 TH/MM3 (150-450); RED BLOOD COUNT 4.41 MIL/MM3 (4.50-5.90); RED CELL DISTRIBUTION WIDTH 19.9 % (11.6-17.2); WHITE BLOOD COUNT 5.4 TH/MM3 (4.0-11.0)
[2016-12-27 06:47] LABS: HEMO FLAGS AUTO DIFF
[2016-12-27 07:01] LABS: POTASSIUM 3.8 MEQ/L (3.5-5.1)
[2016-12-27 07:09] LABS: BICARBONATE 28.1 MEQ/L (21.0-32.0)
[2016-12-27 07:33] LABS: KERATOCYTES OCC (NORMAL); OVALOCYTES 2+ (NORMAL); SCAN/DIFF AUTO DIFF CONFIRMED; TEARDROP RBCS 1+ (NORMAL)
[2016-12-27 07:50] VITALS: BP 126/64; PULSE 60; RESP 20; TEMP 96.4; O2SAT 95
--- NOTE | 2016-12-27 07:58 | HHI.GIFU ---
Subjective Remarks Patient laying in bed feels comfortable, had multiple bowel movements yesterday , hungry and wants to eat more Objective Vitals I&O Vital Signs Date Time Temp Pulse Resp B/P (MAP) Pulse Ox O2 Delivery O2 Flow Rate FiO2 12/27/16 00:00 97.7 77 18 126/70 (88) 97 12/26/16 20:00 98.0 83 17 135/68 (90) 96 12/26/16 15:50 97.7 79 20 123/60 (81) 97 12/26/16 11:50 98.5 84 20 161/87 (111) 98 I/O 12/26/16 12/26/16 12/26/16 12/27/16 12/27/16 12/27/16 07:00 15:00 23:00 07:00 15:00 23:00 Intake Total 1960 ml 100 ml 1544 ml 800 ml Output Total 520 ml Balance 1440 ml 100 ml 1544 ml 800 ml Intake Oral 760 ml 0 ml IV Total 1200 ml 100 ml 1544 ml 800 ml Output Urine Total 520 ml # Voids 2 3 # Bowel Movements 2 2 9 Laboratory Laboratory Tests Test 12/26/16 12:07 12/27/16 05:05 Lactic Acid Level 1.6 White Blood Count 5.4 Red Blood Count 4.41 Hemoglobin 8.7 Hematocrit 28.4 Mean Corpuscular Volume 64.4 Mean Corpuscular Hemoglobin 19.7 Mean Corpuscular Hemoglobin Concent 30.6 Red Cell Distribution Width 19.9 Platelet Count 174 Mean Platelet Volume 8.7 Neutrophils (%) (Auto) 59.6 Lymphocytes (%) (Auto) 22.8 Monocytes (%) (Auto) 10.7 Eosinophils (%) (Auto) 6.0 Basophils (%) (Auto) 0.9 Neutrophils # (Auto) 3.3 Lymphocytes # (Auto) 1.2 Monocytes # (Auto) 0.6 Eosinophils # (Auto) 0.3 Basophils # (Auto) 0.0 CBC Comment AUTO DIFF Differential Comment AUTO DIFF CONFIRMED Tear Drop Cells 1+ Ovalocytes 2+ Keratocytes OCC Blood Urea Nitrogen 25 Creatinine 0.83 Random Glucose 85 Calcium Level 7.7 Sodium Level 143 Potassium Level 3.8 Chloride Level 109 Carbon Dioxide Level 28.1 Anion Gap 6 Estimat Glomerular Filtration Rate 98 Date/Time Source Procedure Growth Status 12/25/16 11:35 Blood Peripheral Aerobic Blood Culture - Preliminary NO GROWTH IN 1 DAY Resulted 12/25/16 11:35 Blood Peripheral Anaerobic Blood Culture - Preliminary NO GROWTH IN 1 DAY Resulted 12/26/16 13:10 Stool Stool Stool Occult Blood (RUBÉN) - Final HEMOCCULT POSITIVE Complete Physical Exam HEENT: Pupils round and reactive to light; normocephalic; atraumatic; no jaundice. Throat is clear. NECK: Neck is supple, no JVD, no lymphadenopathy. CHEST: Chest is clear to auscultation and percussion. CARDIAC: Regular rate and rhythm with no murmur gallop or rubs. ABDOMEN: Soft, nondistended, nontender; no hepatosplenomegaly; bowel sounds are present in all four quadrants. EXTREMITIES: No clubbing, cyanosis, or edema. SKIN: Normal; no rash; no jaundice. [place] [employer]: No focal deficits; alert and oriented times three. Assessment and Plan Plan Patient is 51-year-old gentleman who came with abdominal pain abnormal CT scan of the small bowel questionable enteritis versus Crohn disease patient did not have any nausea or vomiting no abdominal pain at this time I discussed the case with Dr. Brenner the plan will be to obtain small bowel follow-through today if it's showing no obstruction we can try to give him diet and advance it as tolerated Patient would like to avoid colonoscopy if possible If he is able to tolerate diet he can be discharged and we will do CT scan as an outpatient in 1 month to ensure that his findings resolved if not he will need to be on therapy for Crohn disease after attempting colonoscopy with possible biopsy 12/27/16 patient is laying in bed comfortably doing better, had bowel movements , we will advance diet to full liquid and see if he tolerated, patient still will like to try to avoid colonoscopy and follow-up with CT scan later, we will see how he is doing after diet KUB to see if he still distended Michael Glez MD Dec 27, 2016 07:58
--- NOTE | 2016-12-27 08:09 | HHI.PR ---
Subjective Subjective Notes Ambulating in room No issues Feels hungry Objective Vitals/I&O Vital Signs Date Time Temp Pulse Resp B/P (MAP) Pulse Ox O2 Delivery O2 Flow Rate FiO2 12/27/16 00:00 97.7 77 18 126/70 (88) 97 12/25/16 12:15 Room Air Labs Laboratory Tests Test 12/26/16 12:07 12/27/16 05:05 Lactic Acid Level 1.6 White Blood Count 5.4 Red Blood Count 4.41 Hemoglobin 8.7 Hematocrit 28.4 Mean Corpuscular Volume 64.4 Mean Corpuscular Hemoglobin 19.7 Mean Corpuscular Hemoglobin Concent 30.6 Red Cell Distribution Width 19.9 Platelet Count 174 Mean Platelet Volume 8.7 Neutrophils (%) (Auto) 59.6 Lymphocytes (%) (Auto) 22.8 Monocytes (%) (Auto) 10.7 Eosinophils (%) (Auto) 6.0 Basophils (%) (Auto) 0.9 Neutrophils # (Auto) 3.3 Lymphocytes # (Auto) 1.2 Monocytes # (Auto) 0.6 Eosinophils # (Auto) 0.3 Basophils # (Auto) 0.0 CBC Comment AUTO DIFF Differential Comment AUTO DIFF CONFIRMED Tear Drop Cells 1+ Ovalocytes 2+ Keratocytes OCC Blood Urea Nitrogen 25 Creatinine 0.83 Random Glucose 85 Calcium Level 7.7 Sodium Level 143 Potassium Level 3.8 Chloride Level 109 Carbon Dioxide Level 28.1 Anion Gap 6 Estimat Glomerular Filtration Rate 98 Date/Time Source Procedure Growth Status 12/25/16 11:35 Blood Peripheral Aerobic Blood Culture - Preliminary NO GROWTH IN 1 DAY Resulted 12/25/16 11:35 Blood Peripheral Anaerobic Blood Culture - Preliminary NO GROWTH IN 1 DAY Resulted 12/26/16 13:10 Stool Stool Stool Occult Blood (RUBÉN) - Final HEMOCCULT POSITIVE Complete Radiology Last 48 hours Impressions Abdomen/Pelvis CT 12/25/16 0922 Signed Impressions: Service Date/Time: Sunday, December 25, 2016 10:24 - CONCLUSION: 1. Abnormally dilated mid and distal small bowel likely representing a partial small bowel obstruction secondary to an abnormal distal and terminal ileum. The abnormal ileum has an appearance highly suspicious for inflammatory bowel disease/Crohn's disease. 2. Trace free fluid in the abdomen and pelvis. 3. Mild splenomegaly. Augustin Murray MD Cardiovascular: Regular Lungs: Clear Abdomen: Non-distended, Non-tender Extremities: No edema A/P Assessment and Plan 51 year old male with abdominal pain; CT and SBFT questionable for Crohn's disease -Diet as tolerated -DC IVF -Would recommend follow up with GI -GS clear for DC if tolerated diet Umu Dobbins Dec 27, 2016 08:09
[2016-12-27] MEDS: SODIUM CHLORIDE 0.9% FLUSH 10 ML FLUSH IV FLUSH SCH (08:58)
[2016-12-27] MEDS: DOCUSATE SODIUM 50 MG/SENNA 8.6 MG TAB PO SCH (08:59)
[2016-12-27] MEDS ORDERED: DOCUSATE SODIUM 100 MG CAP PO SCH (09:00)
[2016-12-27] MEDS ORDERED: FERROUS SULFATE 325 MG (65 MG ELEMENTAL IRON) TAB PO SCH (09:00)
--- NOTE | 2016-12-27 10:24 | RADRPT ---
EXAM DATE/TIME: 12/27/2016 09:10 [facility] COMPARISON: SMALL BOWEL SERIES W/GASTROGRAFIN, December 26, 2016, 8:00. INDICATIONS : Obstruction. MEDICAL HISTORY : None. SURGICAL HISTORY : None. ENCOUNTER: Subsequent ACUITY: 3 days PAIN SCORE: 0/10 LOCATION: Bilateral abdomen FINDINGS: Supine view of the abdomen was performed. Contrast administered previously is now seen within the col on. There are still dilated small bowel loops. Pattern is most t characteristic of a partial small mónica wel obstruction. No pneumoperitoneum. CONCLUSION: Radiographic appearance most characteristic of a partial small bowel obstruction. Virgil Hartley MD on December 27, 2016 at 10:21 Board Certified Radiologist. This report was verified electronically.
[2016-12-27] MEDS ORDERED: CIPR500T2 PO (10:52)
[2016-12-27] MEDS ORDERED: META48.53 PO (10:52)
[2016-12-27] MEDS ORDERED: DOCU1CAP39 PO (10:52)
[2016-12-27] MEDS ORDERED: METR1TAB76 PO (10:52)
[2016-12-27] MEDS ORDERED: FERR325T20 PO (10:52)
--- NOTE | 2016-12-27 10:53 | HHI.DS ---
Discharge Summary Admission Date Dec 25, 2016 at 11:20 Discharge Date: Dec 27, 2016 Admitting Diagnosis partial small bowel obstruction, leukocytosis (1) Partial small bowel obstruction ICD Code: K56.600 - Partial intestinal obstruction, unspecified as to cause Diagnosis: Principal Status: Resolved (2) Sepsis ICD Code: A41.9 - Sepsis, unspecified organism Diagnosis: Principal Status: Resolved (3) Ileitis ICD Code: K52.9 - Noninfective gastroenteritis and colitis, unspecified Diagnosis: Principal (4) Lactic acidosis ICD Code: E87.2 - Acidosis Diagnosis: Secondary Status: Resolved (5) Anemia due to acute blood loss ICD Code: D62 - Acute posthemorrhagic anemia Diagnosis: Secondary Procedures None Brief History - From Admission this is a pleasant 51 year-old male with no significant past medical history who presented to the ER yesterday complaining of severe abdominal pain. The patient states that 2 days ago he started to develop some lower back cramping. Then yesterday he woke up in the middle of night around 2 AM with severe lower abdominal pain which progressed to the periumbilical area. It was sharp and cramping in nature first intermittent and then became steady 10 out of 10 no alleviating factors. Associated with 2 bouts of vomiting. He also had a fever and chills. His abdomen felt distended. Last bowel movement the day prior and was normal. Patient presented to the ER were lactic acid was elevated at 4 with repeat 3[address] Abdominal CT scan showing ileitis and a partial small bowel obstruction. Of note patient had a colonoscopy 4 months ago which was reportedly normal. No family history of inflammatory bowel disease. No sick contacts. Patient was given IV Cipro and Flagyl and one dose of Solu- Medrol. GI and general surgery were consulted. Patient has had 2 bowel movements this morning the first form the second one loose. Patient states this morning his abdominal pain had resolved however when he went down for small bowel follow-through and was given IV contrast he started to develop the pain again in the same region which is intermittent however this time only 3 out of 10. CBC/BMP: 12/27/16 0505 12/27/16 0505 Significant Findings Laboratory Tests Test 12/25/16 09:39 12/25/16 11:30 12/25/16 11:35 12/25/16 14:22 White Blood Count 19.1 TH/MM3 (4.0-11.0) Red Blood Count 6.97 MIL/MM3 (4.50-5.90) Mean Corpuscular Volume 63.6 FL (80.0-100.0) Mean Corpuscular Hemoglobin 19.3 PG (27.0-34.0) Mean Corpuscular Hemoglobin Concent 30.3 % (32.0-36.0) Red Cell Distribution Width 19.1 % (11.6-17.2) Neutrophils (%) (Auto) 93.3 % (16.0-70.0) Lymphocytes (%) (Auto) 2.2 % (9.0-44.0) Neutrophils # (Auto) 17.8 TH/MM3 (1.8-7.7) Lymphocytes # (Auto) 0.4 TH/MM3 (1.0-4.8) Blood Urea Nitrogen 23 MG/DL (7-18) Random Glucose 202 MG/DL (74-106) Total Protein 8.5 GM/DL (6.4-8.2) Sodium Level 135 MEQ/L (136-145) Chloride Level 96 MEQ/L (98-107) Estimat Glomerular Filtration Rate 58 ML/MIN (>89) Urine Specific [place] GREATER THAN 1.035 Urine Protein 30 mg/dL (NEG-TRACE) Urine Ketones 15 mg/dL (NEG) Lactic Acid Level 4.9 mmol/L (0.4-2.0) 3.0 mmol/L (0.4-2.0) Test 12/26/16 06:35 12/26/16 12:07 12/27/16 05:05 Hemoglobin 9.8 GM/DL (13.0-17.0) 8.7 GM/DL (13.0-17.0) Hematocrit 32.3 % (39.0-51.0) 28.4 % (39.0-51.0) Mean Corpuscular Volume 63.7 FL (80.0-100.0) 64.4 FL (80.0-100.0) Mean Corpuscular Hemoglobin 19.3 PG (27.0-34.0) 19.7 PG (27.0-34.0) Mean Corpuscular Hemoglobin Concent 30.3 % (32.0-36.0) 30.6 % (32.0-36.0) Red Cell Distribution Width 19.4 % (11.6-17.2) 19.9 % (11.6-17.2) Neutrophils (%) (Auto) 72.1 % (16.0-70.0) Monocytes (%) (Auto) 15.5 % (0.0-8.0) 10.7 % (0.0-8.0) Lymphocytes # (Auto) 0.6 TH/MM3 (1.0-4.8) Tear Drop Cells 1+ (NORMAL) 1+ (NORMAL) Ovalocytes 2+ (NORMAL) 2+ (NORMAL) Blood Urea Nitrogen 25 MG/DL (7-18) 25 MG/DL (7-18) Random Glucose 111 MG/DL (74-106) Calcium Level 7.8 MG/DL (8.5-10.1) 7.7 MG/DL (8.5-10.1) Estimat Glomerular Filtration Rate 87 ML/MIN (>89) Iron Level 16 MCG/DL (65-175) Percent Iron Saturation 4.0 % (20-50) Ferritin 12 NG/ML (26-388) Red Blood Count 4.41 MIL/MM3 (4.50-5.90) Eosinophils (%) (Auto) 6.0 % (0.0-4.0) Chloride Level 109 MEQ/L (98-107) Imaging Last Impressions Abdomen X-Ray 12/27/16 0000 Signed Impressions: Service Date/Time: December 09:10 - CONCLUSION: Radiographic appearance most characteristic of a partial small bowel obstruction. Virgil Hartley MD Small Bowel X-Ray 12/26/16 0000 Signed Impressions: Service Date/Time: Monday, December 26, 2016 08:00 - CONCLUSION: Abnormal small bowel series with Gastrografin dilatation of proximal small bowel loops has progressed. Findings are most consistent with inflammatory bowel disease. This can be followed by MRI enterography Federico Mortensen MD FACR Abdomen/Pelvis CT 12/25/16 0922 Signed Impressions: Service Date/Time: Sunday, December 25, 2016 10:24 - CONCLUSION: 1. Abnormally dilated mid and distal small bowel likely representing a partial small bowel obstruction secondary to an abnormal distal and terminal ileum. The abnormal ileum has an appearance highly suspicious for inflammatory bowel disease/Crohn's disease. 2. Trace free fluid in the abdomen and pelvis. 3. Mild splenomegaly. Augustin Murray MD PE at Discharge GENERAL: Well-nourished, well-developed patient. SKIN: Warm and dry. HEAD: Normocephalic. EYES: No scleral icterus. No injection or drainage. NECK: Supple, trachea midline. No JVD or lymphadenopathy. CARDIOVASCULAR: Regular rate and rhythm without murmurs, gallops, or rubs. RESPIRATORY: Breath sounds equal bilaterally. No accessory muscle use. GASTROINTESTINAL: Abdomen soft, non-tender, mildly distended. Bowel sounds normal. EXTREMITIES: No cyanosis, or edema. NEUROLOGICAL: Awake, alert, and oriented x 3. Non-focal. Pt update on day of discharge Patient is doing well. No nausea or vomiting. His abdomen is a little sore as if "I did a lot of sit ups." Patient has had numerous bowel movements. He tolerated full liquid diet for breakfast. Hospital Course Patient was admitted to the hospital and treated with IV antibiotics and IV fluids. Gastroenterology and general surgery were consulted. Small bowel follow-through indicated contrast was passing through the colon. Both CT abdomen and small bowel follow-through indicated inflammatory changes in the ileum suggestive of Crohn's disease. Interestingly the patient had a negative colonoscopy 6 months ago. No family history of inflammatory bowel disease. Lactic acid trended down nicely. Blood cultures were negative. Patient symptoms improved and he is tolerating a full liquid diet. He has some abdominal soreness but is having numerous stools after receiving mag citrate. The patient's diet will be advanced to regular. I discussed the patient with general surgery who cleared him for discharge for their perspective. I discussed with gastroenterology Dr. Glez - patient is to follow-up in his clinic in several weeks and will need a repeat abdominal CT scan to ensure the ileitis has resolved, the patient may need colonoscopy with biopsy but that will be decided at a future date. Patient also had a drop in hemoglobin from 13-8.7. Hemoccult was positive. There was no gross bleeding from rectum. Likely the patient has some microscopic bleeding from the ileitis. Iron level was low. Patient is started on oral iron therapy. I discussed with the patient and his that I recommend that he stay on Colace and take Metamucil daily to ensure his stools are soft. He will be prescribed a course of Cipro and Flagyl. If patient tolerates regular diet he will be discharged home this afternoon. Pt Condition on Discharge: Stable Discharge Disposition: Discharge Home Discharge Time: > 30 minutes Discharge Instructions DIET: Follow Instructions for: As Tolerated, No Restrictions Activities you can perform: Regular-No Restrictions Follow up Referrals: Gastroenterology - 3 Weeks with Wendy Byers MD PCP Follow-up - 3-5 Days New Medications: Ciprofloxacin (Ciprofloxacin) 500 Mg Tab 500 MG PO BID for Infection, #20 TAB 0 Refills Metronidazole (Metronidazole) 500 Mg Tab 500 MG PO TID for Infection, #10 TAB 0 Refills Psyllium Powder (Metamucil Original Texture) 3.4 Gram/7 Gram Pow 1 SCOOP PO TID for stool softener for 30 Days, #30 CONTAINER 0 Refills 1 rounded [place] in 8 oz of liquid at the first sign of irregularity. Docusate Sodium (Dok) 100 Mg Cap 100 MG PO TID for stool softener, #90 CAP Ferrous Sulfate (Ferosul) 325 Mg (65 Mg Iron) Tablet 325 MG PO BID for Build Red Blood Cells, #60 TAB Genoveva Mcintyre MD Dec 27, 2016 10:53
[2016-12-27 11:50] VITALS: BP 126/65; PULSE 66; RESP 20; TEMP 96.5; O2SAT 98
== END 2016-12-27 13:00 | disposition home or self-care (01) | DRG 389 ==
LOC: PHED 09:00 → PHEDA 11:20 → PH3B 12:59
PROVIDERS: ADMIT Family Medicine; ATTEND Family Medicine
DX: K56.600 Partial intestinal obstruction, unspecified as to cause (principal); D62 Acute posthemorrhagic anemia; E87.2 Acidosis; K52.9 Noninfective gastroenteritis and colitis, unspecified
CPT/HCPCS: 74000; 74177; 74250; 80048; 80053; 81001; 82272; 82607; 82728; 82746; 83540; 83550; 83605; 83690; 85025; 87040; 96361; 96374; 96375; J0744; J1170; J2270; J2405; J2543; J2930; J7030; Q9963; Q9967